=== PATIENT | female | born 1945 | race Caucasian/White ===

== ENCOUNTER → 2020-03-21 10:41 | Outpatient (CLI) | payer MEDICARE, BC, SELFPAY ==
--- NOTE | 2020-03-21 10:46 | DI.MRI.S_ITS ---
PROCEDURE: MR THORACIC SPINE WO CON INDICATIONS: Pain in thoracic spine TECHNIQUE: Noncontrast sagittal T1 spine echo and T2 fast spin echo, sagittal STIR, axial T1 and T2 fast spin echo through the thoracic spine. COMPARISON: None. FINDINGS: Image quality: Excellent. Alignment and Curvature: There is normal bony alignment. Bone Marrow: Benign, intraosseous hemangiomas noted in the T9 , T11 and L1 vertebral bodies. No acute vertebral body compression fractures. Spinal Cord: Visualized spinal cord is normal in size and signal. Paraspinous Soft Tissues: No paravertebral masses. Large partially visualized right renal cyst. Miscellaneous: Moderate multilevel degenerative disc disease. On axial images, central canal and foramina appear widely patent at all scanned levels. IMPRESSION: 1. Moderate multilevel degenerative disease. 2. No central stenosis. 3. No neural foraminal narrowing. 4. No neural compression. 5. No vertebral body compression fracture. Dictated by: Lorraine Panda MD, PhD on 03/21/2020 at 16:52 Approved by: Lorraine Panda MD, PhD on 03/21/2020 at 17:00
--- NOTE | 2020-03-21 10:46 | DI.MRI.S_ITS ---
PROCEDURE: MR CERVICAL SPINE WO CON INDICATIONS: Other cervical disc degeneration, unspecified cervical regio TECHNIQUE: Noncontrast sagittal T1 spin echo and T2 fast spin echo, sagittal STIR, foraminal oblique sagittal T2 fast spin echo, and axial gradient echo or T2 fast spin echo through the cervical spine. COMPARISON: CR, CERVICAL SPINE 2 OR 3 VIEWS, 10/23/2009, 12:31. FINDINGS: Image quality: Excellent. Alignment and Curvature: There is mild C7-T1 and T1-T2 anterolisthesis. There is trace C6-C7 anterolisthesis. Bone Marrow: Reactive endplate changes noted adjacent to the C4-C5, C5-C6 and C6-C7 discs. Spinal Cord: Visualized spinal cord has normal size and signal. No cerebellar tonsillar herniation. Paraspinous Soft Tissues: No paravertebral masses. Prevertebral soft tissues are normal in thickness. C2-C3: Loss of disc signal. Mild, diffuse disc bulge. Mild right facet hypertrophy. Mild right uncovertebral joint hypertrophy. No central stenosis. Moderate right neural foraminal narrowing. No neural compression. C3-C4: Loss of disc signal and height. Mild to moderate diffuse disc bulge. Moderate right and mild left facet hypertrophy. Mild bilateral uncovertebral joint hypertrophy. Mild narrowing of the central canal. Severe right and moderate left neural foraminal narrowing with compression of the exiting right C4 nerve root. C4-C5: Loss of disc signal and height. Moderate, diffuse disc bulge. Moderate right and mild left facet hypertrophy. Moderate bilateral uncovertebral joint hypertrophy. Severe right and moderate left neural foraminal narrowing with compression of the exiting right C5 nerve root. C5-C6: Loss of disc signal and height. Moderate to severe diffuse disc bulge. Moderate narrowing of the central canal. Moderate right and mild left facet hypertrophy. Moderate bilateral uncovertebral joint hypertrophy. Severe bilateral neural foraminal narrowing with compression of the exiting C6 nerve roots. C6-C7: Loss of disc signal and height. Mild, diffuse disc bulge. Moderate bilateral facet hypertrophy. Mild bilateral uncovertebral joint hypertrophy. Mild narrowing of the central canal. Mild bilateral neural foraminal narrowing. No neural compression. C7-T1: Loss of disc signal and height. Mild, diffuse disc bulge. Mild right and severe left facet hypertrophy. No central stenosis. Severe left neural foraminal narrowing with compression of the exiting left C8 nerve root. IMPRESSION: 1. Multilevel degenerative disc disease. 2. Multilevel facet and uncovertebral arthropathy. 3. No significant central canal narrowing. 4. Severe right C3-C4 and C4-C5 neural foraminal narrowing with compression of the exiting right C4 and C5 nerve roots. Severe bilateral C5-C6 neural foraminal narrowing with compression of the exiting bilateral C6 nerve roots. Severe left C7-T1 neural foraminal narrowing with compression of the exiting left C8 nerve root. Dictated by: Lorraine Panda MD, PhD on 03/21/2020 at 15:34 Approved by: Lorraine Panda MD, PhD on 03/21/2020 at 15:54
--- NOTE | 2020-03-21 10:46 | DI.MRI.S_ITS ---
PROCEDURE: MR LUMBAR SPINE WO CON INDICATIONS: Low back pain TECHNIQUE: Noncontrast sagittal T1 spin echo and T2 fast echo, sagittal STIR, axial T1 and T2 fast spin echo through the lumbar spine. In cases with scoliosis, additional coronal T2 fast spin echo may be performed. COMPARISON: None. FINDINGS: Image quality: Excellent. Alignment and Curvature: Transitional anatomy is noted with lumbarization of what appears to be the 1st acral vertebral body with diminutive disc. Vertebral bodies are labeled 1 through 5 for purposes of this exam. There is trace retrolisthesis of L2 on L3, L3 on L4, L4 on L5, L5 on S1. Bone Marrow: Marrow is of normal overall signal. Moderate reactive endplate changes are present at L1-L2, [id number] L3-4. Schmorl's nodes are noted along the superior and inferior endplates of multiple vertebral bodies most severe at L1 inferior endplate. No acute vertebral body compression fractures. Increased T2 signal is present at T10 and L2 and to a lesser degree L1 most suggestive of hemangiomas. Tarlov cysts are noted at the level of S3. Spinal Cord: Conus medullaris terminates at the L2 level. Visualized cord demonstrates normal signal and size. Paraspinous Soft Tissues: No paravertebral masses. Prominent incompletely visualized T2 hyperintensity is present at the superior aspect of the right kidney. Smaller foci are identified on the left. These are most suggestive of cysts. Discs: Severe desiccation is present throughout the lumbar spine. L1-L2: Minimal disc bulge without spinal stenosis or foraminal narrowing. Mild facet hypertrophy. L2-L3: Minimal disc bulge without spinal stenosis. Moderate left and mild right foraminal narrowing with facet hypertrophy. L3-L4: Mild disc bulge with [id number] spinal stenosis. Moderate to severe bilateral foraminal narrowing with facet and ligamentum flavum hypertrophy. L4-L5: Mild disc bulge with minimal spinal stenosis. Moderate to severe left and [id number] right foraminal narrowing with facet and ligamentum flavum hypertrophy. L5-S1: Mild disc bulge with moderate to severe spinal stenosis. Severe left and moderate to severe right foraminal narrowing with facet and ligamentum flavum hypertrophy. S1-S2: Mild disc bulge with mild spinal stenosis. Bilateral, right greater than left foraminal narrowing with facet hypertrophy. IMPRESSION: 1. Multilevel disc bulges. 2. Multilevel spinal stenosis most severe at L5-S1 secondary to disc bulge with contributing effect of facet and ligamentum flavum arthropathy. 3. Multilevel foraminal narrowing most severe at L5-S1, S1-S2 secondary to facet arthropathy. Dictated by: Lisa Herrera M.D. on 03/21/2020 at 15:48 Approved by: Lisa Herrera M.D. on 03/21/2020 at 15:57
== END ==
PROVIDERS: Referring Provider Family Medicine; Visit Provider Family Medicine
DX: M50.31 Other cervical disc degeneration, high cervical region (principal); M47.812 Spondylosis without myelopathy or radiculopathy, cervical region; M47.814 Spondylosis without myelopathy or radiculopathy, thoracic region; M47.816 Spondylosis without myelopathy or radiculopathy, lumbar region; M47.817 Spondylosis without myelopathy or radiculopathy, lumbosacral region; M51.26 Other intervertebral disc displacement, lumbar region; M51.27 Other intervertebral disc displacement, lumbosacral region; M48.061 Spinal stenosis, lumbar region without neurogenic claudication; M48.07 Spinal stenosis, lumbosacral region
CPT/HCPCS: 72141; 72146; 72148